=== PATIENT | male | born 1965 | race Two or more races ===

== ENCOUNTER 2016-11-16 11:56 | Emergency (ER) | payer SELFPAY ==
[~2016-11-16] VITALS: Ht 180.3 cm; Wt 86.2 kg
[2016-11-16] MEDS ORDERED: KETOROLAC TROMETH 60MG/2ML VIAL IM ONE (13:00)
[2016-11-16 15:57] VITALS: BP 173/88
== END 2016-11-16 16:21 | disposition home or self-care (01) ==
LOC: ER 11:56
DX: M25.562 Pain in left knee (principal); R22.42 Localized swelling, mass and lump, left lower limb; W01.0XXA Fall on same level from slipping, tripping and stumbling without subsequent striking against object, initial encounter; Y93.89 Activity, other specified; Y99.8 Other external cause status; Y92.89 Other specified places as the place of occurrence of the external cause
CPT/HCPCS: 29505; 73700; 96372; 99284; J1885